=== PATIENT | male | born 1965 | race Two or more races ===

== ENCOUNTER 2016-10-12 13:02 | Emergency (ER) | payer BC ==
[2016-10-12 13:37] VITALS: RESP 16; O2SAT 94
[2016-10-12] MEDS ORDERED: IOPAMIDOL (ISOVUE 370) 100 ML BTL IV ONE (15:18)
[2016-10-12] MEDS ORDERED: IBUPROFEN 600 MG TAB PO ONE (15:55)
[2016-10-12] MEDS ORDERED: ACETAMINOPHEN 325 MG TAB PO ONE (15:55)
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
[2016-10-12 16:41] VITALS: BP 129/89; PULSE 96; TEMP 96.8
== END 2016-10-12 16:39 | disposition home or self-care (01) ==
DX: S06.0X0A Concussion without loss of consciousness, initial encounter (principal); W22.8XXA Striking against or struck by other objects, initial encounter; Y92.89 Other specified places as the place of occurrence of the external cause; Y99.8 Other external cause status; I10 Essential (primary) hypertension; F17.200 Nicotine dependence, unspecified, uncomplicated
CPT/HCPCS: Q9967

== ENCOUNTER 2017-11-18 12:17 | Observation (INO) | payer BC, MEDICAID ==
[2017-11-18] MEDS ORDERED: NS 1,000 ML IV ONE (12:48)
[2017-11-18] MEDS ORDERED: MECLIZINE HCL 25 MG TAB PO ONE (12:49)
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
[2017-11-18] MEDS ORDERED: ASPIRIN 81 MG CHEWABLE TAB PO ONE (13:39)
[2017-11-18] MEDS ORDERED: NITROGLYCERIN 2% 1 GM PACKET TP ONE (13:45)
--- NOTE | 2017-11-18 14:25 | CPEKG ---
Test Reason : OPEN Blood Pressure : / mmHG Vent. Rate : 091 BPM Atrial Rate : 091 BPM P-R Int : 150 ms QRS Dur : 102 ms QT Int : 375 ms P-R-T Axes : 039 185 034 degrees QTc Int : 462 ms Sinus rhythm Consider right ventricular hypertrophy Minimal ST elevation, anterolateral leads Confirmed by Kvng Devries ([id number]) on 11/18/2017 2:24:40 PM Referred By: Confirmed By:Kvng Devries
--- NOTE | 2017-11-18 14:25 | CPEKG ---
Test Reason : OPEN Blood Pressure : / mmHG Vent. Rate : 090 BPM Atrial Rate : 090 BPM P-R Int : 146 ms QRS Dur : 102 ms QT Int : 387 ms P-R-T Axes : 036 184 038 degrees QTc Int : 474 ms Sinus rhythm Probable right ventricular hypertrophy Minimal ST elevation, anterolateral leads Confirmed by Kvng Devries ([id number]) on 11/18/2017 2:24:46 PM Referred By: Confirmed By:Kvng Devries
[2017-11-18 14:33] LABS: PLATELET COUNT 273 10^3/uL (150-400)
[2017-11-18 14:47] LABS: INR 1.06 (0.83-1.16)
[2017-11-18] MEDS ORDERED: ONDANSETRON 4 MG/2 ML VIAL IVP PRN (16:14)
[2017-11-18] MEDS ORDERED: ACETAMINOPHEN 325 MG TAB PO PRN (16:14)
[2017-11-18] MEDS ORDERED: ZOLPIDEM TARTRATE 5 MG TAB PO PRN (16:14)
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
[2017-11-18] MEDS: NS 1,000 ML IV SCH (17:00)
[2017-11-18] MEDS ORDERED: MELATONIN 3 MG TAB PO SCH (21:00)
[2017-11-18] MEDS ORDERED: ATORVASTATIN CALCIUM 10 MG TAB PO SCH ×2 (21:19→22:00)
[2017-11-19] MEDS: NS 1,000 ML IV SCH (03:13)
[2017-11-19] MEDS ORDERED: MULTIVITAMINS 1 EACH TAB PO SCH (09:00)
[2017-11-19] MEDS ORDERED: ENOXAPARIN 40 MG/0.4 ML SYR SC SCH (09:00)
[2017-11-19 11:36] VITALS: BP 125/76
[2017-11-19] MEDS ORDERED: PNEUMOCOCCAL 0.5ML VACCINE VIAL IM ONE (12:44)
--- NOTE | 2017-11-19 12:59 | GDS ---
DIAGNOSES: 1. Nausea, vomiting, diarrhea, resolved. 2. Borderline stable EKG. Recommendations are for outpatient stress test. 3. Sleep apnea. 4. Dyslipidemia. 5. History of alcohol and tobacco use. PROCEDURES DONE: Electrocardiogram, showing right bundle branch block, incomplete, with some nonspec ific ST elevation anteriorly, unchanged over the course of his hospitalization with no reciprocal daylin nges. Negative troponins. HOSPITAL COURSE: The patient is a 51-year-old man admitted with nausea, vomiting, diarrhea. He had some diaphoresis and came into the emergency department. He had an EKG done, which showed some of th e above changes and was admitted for evaluation and treatment. Over the course of his hospitalizatio n, his GI symptoms have resolved. He never had true chest pain, and troponins were negative. Follow up EKG the next morning was essentially unchanged. He does have evidence of a right bundle branch bl ock. This is likely from his history of sleep apnea. Currently, he feels well and is ready to go ho me. I did have the bakery demonstrator review the EKG with me and he, again, felt that this was likely davonte schemic changes, which were unchanged throughout his hospitalization, and he has had negative troponi ns with no chest pain. At this time, he is doing well. He can go home with followup with his primar care provider and set up an exercise stress test as an outpatient. CONDITION ON DISCHARGE: Good. Vital signs are stable. He is asymptomatic. DISCHARGE MEDICATIONS: He will resume his home meds. Please see discharge medication form. FOLLOWUP: He should follow up with his PCP this week. I also have asked him to call [facility] o schedule an exercise stress test as an outpatient. /[id number]/MODL
--- NOTE | 2017-11-19 20:10 | CPEKG ---
Test Reason : OPEN Blood Pressure : / mmHG Vent. Rate : 098 BPM Atrial Rate : 078 BPM P-R Int : 162 ms QRS Dur : 109 ms QT Int : 404 ms P-R-T Axes : 041 170 024 degrees QTc Int : 516 ms Sinus rhythm Paired ventricular premature complexes Consider right ventricular hypertrophy Minimal ST elevation, anterolateral leads Confirmed by Joaquin Porras ([id number]) on 11/19/2017 8:09:56 PM Referred By: Confirmed By:Joaquin Porras
== END 2017-11-19 13:59 | disposition home or self-care (01) ==
LOC: CED 12:17 → CEDHOLD 13:49 → F2W 15:40 → UNDODISOB 11-19 12:41
PROVIDERS: ADMIT Internal Medicine; ATTEND Internal Medicine
DX: R11.2 Nausea with vomiting, unspecified (principal); R19.7 Diarrhea, unspecified; R94.31 Abnormal electrocardiogram [ECG] [EKG]; E78.5 Hyperlipidemia, unspecified; G47.30 Sleep apnea, unspecified; F17.200 Nicotine dependence, unspecified, uncomplicated
CPT/HCPCS: 71046; 90471; 93005; 96360; 99285; G0378; 80076-PO; 82150-PO; 84484-PO; G0009; J1650